=== PATIENT | female | born 1985 | race Two or more races ===

== ENCOUNTER 2019-12-11 12:45 | Emergency (ER) | payer MEDICAID ==
[~2019-12-11] VITALS: Ht 160 cm; Wt 59.0 kg
[2019-12-11 17:15] VITALS: BP 108/65
== END 2019-12-11 17:37 | disposition home or self-care (01) ==
LOC: ER 12:45
DX: M54.6 Pain in thoracic spine (principal); M54.5 Low back pain; M54.2 Cervicalgia; V98.8XXA Other specified transport accidents, initial encounter; Y93.89 Activity, other specified; Y92.89 Other specified places as the place of occurrence of the external cause; Y99.8 Other external cause status
CPT/HCPCS: 72070; 72100; 81025; 99284